=== PATIENT | male | born 1945 | race Caucasian/White ===

== ENCOUNTER 2022-05-13 10:39 | Outpatient (REF) | payer MEDICARE, SELFPAY ==
[2022-05-13 11:23] LABS: Hematocrit 40.6 % (37.0-53.0); Mean Corpuscular HGB Conc 32 gm/dL (32-36); Mean Corpuscular Hemoglobin 30 pg (26-34); Mean Corpuscular Volume 93 fL (80-100); Platelet Count* 202 K/uL (140-440); Red Blood Count 4.36 m/uL (4.30-5.90)
[2022-05-13 11:26] LABS: Chloride* 97 mmol/L (96-114); Potassium* 4.3 mmol/L (3.6-5.1); Sodium* 139 mmol/L (135-149)
[2022-05-13 11:27] LABS: Slide Review Reflex No
[2022-05-13 11:29] LABS: Creatinine* 1.1 mg/dL (0.5-1.5); Estimated Glomerular Filt Rate 69 ml/min
[2022-05-13 11:30] LABS: Blood Urea Nitrogen* 41 mg/dL (7-30); Carbon Dioxide* 33 mmol/L (20-32); Glucose* 176 mg/dL (60-115)
[2022-05-13 13:59] LABS: Hemoglobin A1C* 6.83 % (0-5.6)
== END 2022-05-13 10:40 | disposition home or self-care (01) ==
LOC: NPINS 10:39
PROVIDERS: PCP Family Medicine; Visit Provider Nurse Practitioner Gerontology
DX: E11.40 Type 2 diabetes mellitus with diabetic neuropathy, unspecified (principal); E03.9 Hypothyroidism, unspecified; E78.5 Hyperlipidemia, unspecified; I73.9 Peripheral vascular disease, unspecified
CPT/HCPCS: 80048; 83036; 84443; 85027

== ENCOUNTER 2022-10-27 15:40 | Outpatient (REF) | payer MEDICARE, MEDICAID, SELFPAY ==
[2022-10-27 17:20] LABS: Appearance Urine Cloudy (Clear); Bilirubin Urine 1+ (Negative); Blood Urine Negative (Negative); Color Urine Yellow (Yellow); Glucose Urine Negative (Negative); Ketones Urine Trace (Negative); Leukocyte Esterase Urine Negative (Negative); Nitrite Urine Negative (Negative); Protein Urine 1+ (Negative)
[2022-10-27 17:30] LABS: Amorphous Sediment Urine Few; RBC Urine 0-2 (0-2); WBC Urine 0-2 (0-5)
== END 2022-10-27 15:41 | disposition home or self-care (01) ==
LOC: NPINS 15:40
PROVIDERS: PCP Family Medicine; Visit Provider Nurse Practitioner Gerontology
DX: R32 Unspecified urinary incontinence (principal); R53.1 Weakness
CPT/HCPCS: 81003; 81015; 87086

== ENCOUNTER 2022-10-27 16:04 | Outpatient (CLI) | payer MEDICARE, MEDICAID, SELFPAY | END 2022-10-27 16:05 | disposition home or self-care (01) | LOC: AMB 10-30 11:17 | PROVIDERS: PCP Family Medicine; Visit Provider Emergency Medicine Emergency Medical Services | DX: R41.82 Altered mental status, unspecified (principal); R53.1 Weakness | CPT/HCPCS: A0425; A0427; A0428 ==

== ENCOUNTER 2022-10-27 16:29 | Emergency (ER) | payer MEDICARE, MEDICAID, SELFPAY ==
[2022-10-27 16:31] VITALS: BP 131/82; PULSE 87; RESP 16; TEMP 37.2; O2SAT 94; BMI 38.0
--- NOTE | 2022-10-27 16:54 | CRLHL7_ITS ---
For Patients: As a result of the Century Cures Act, medical imaging exams and procedure reports are released immediately into your electronic medical record. You may view this report before your referring provider. If you have questions, please contact your health care provider. INDICATION: .WEAKNESS, AMS TECHNIQUE: Head CT without contrast. COMPARISON: CT December 2020. FINDINGS: Periventricular areas of low attenuation, likely due to chronic small vessel ischemic changes. Generalized volume loss. Atherosclerosis. Right posterior parietal approach [employer] shunt catheter with tip abutting the intraventricular septum, unchanged compared to 2020 exam. No intracranial hemorrhage. No discrete mass or mass effect. There is no midline shift. The basilar cisterns are patent. Stable prominence of the ventricular system, unchanged compared to December 2020 exam. The saucedo-white matter interface is otherwise preserved. No acute osseous abnormality. No extracalvarial soft tissue abnormality. The mastoid air cells are clear. The paranasal sinuses are well-aerated. The visualized portions of the orbits and globes are unremarkable. IMPRESSION: No acute intracranial process per unenhanced head CT. Stable positioning right-sided [employer] shunt catheter with prominence of the ventricular system, unchanged dating back to December 2020. Please note that all CT scans at this facility use dose modulation, iterative reconstruction, and/or weight-based dosing when appropriate to reduce radiation dose to as low as reasonably achievable. Dictated by Barrett Francois MD @ 10/27/2022 5:18:53 PM (Electronically Signed)
--- NOTE | 2022-10-27 16:56 | ED_ITS ---
HPI - Weakness General Chief complaint: Weakness Stated complaint: Weakness Time Seen by Provider: 10/27/22 16:41 History of Present Illness HPI Narrative: This 77-year-old man is a resident of a prison and is DNR DNI. He comes in with family who state that he is not himself today. There is report of generalized weakness. He does not normally ambulate. The patient is not showing any sign of neurologic deficit. He is brought here for evaluation but the symptoms are stated as rather vague. Urine and labs were acquired at the prison and results are being sent here. A family member states that his blood glucose is been fluctuant lately. He has had some very high glucose levels and then as low as 35. Related Data Allergies Allergy/AdvReac Type Severity Reaction Status Date / Time No Known Drug Allergies Allergy Verified 10/27/22 16:38 Review of Systems Narrative: Review of systems is difficult because of the patient's current status. PFSH PFSH Social History Smoking Status: Never smoker Do you use any of these nicotine containing products: None Second hand tobacco smoke exposure: No How often do you have a drink containing alcohol: never AUDIT-C Alcohol total score: 0 Non-prescribed substance use: denies use Exam Narrative: Exam Narrative: Constitutional: Well-developed, well-nourished, no acute distress. HEENT: Normocephalic, atraumatic. Neck: Normal range of motion. Nontender. Supple. Heart: Regular. No murmurs. Normal rate. Intact distal pulses. Lungs: Clear to auscultation. No chest discomfort. No wheezes, rhonchi, or rales. Abdomen: Normal bowel sounds. Nontender. No rebound tenderness. Genitalia: Deferred. Back: No midline tenderness. Normal range of motion. Extremities: Normal range of motion. No injury. Bilateral pedal edema. Skin: Intact. No rash. Warm. No erythema or pallor. Neurologic: No altered sensation. No weakness. Alert. Psychiatric: No suicidality. No anxiety or depression. No insomnia. Nursing notes and vitals signs are reviewed. Const: Vital Signs, click to edit/add: Vital Signs - 24 hr 10/27/22 16:31 10/27/22 17:30 Temperature 99.0 F Pulse Rate [Pulse Oximeter] 87 Respiratory Rate 16 Blood Pressure [Le ft Upper Arm] 131/82 Pulse Oximetry 94 94 Oxygen Delivery Me thod Room Air Course Vital Signs Vital signs: Initial Vital Signs Temperature 99.0 F 10/27/22 16:31 Temperature Source Temporal Artery Scan 10/27/22 16:31 Pulse Rate 87 10/27/22 16:31 Pulse Rhythm 10/27/22 16:31 Pulse Strength 3+ Normal 10/27/22 16:31 Respiratory Rate 16 10/27/22 16:31 Blood Pressure 131/82 10/27/22 16:31 Blood Pressure Mean 98 10/27/22 16:31 Pulse Oximetry 94 10/27/22 16:31 Oxygen Delivery Method 10/27/22 16:31 Vital Signs Temperature 99.0 F 10/27/22 16:31 Pulse Rate 87 10/27/22 16:31 Respiratory Rate 16 10/27/22 16:31 Blood Pressure 131/82 10/27/22 16:31 Pulse Oximetry 94 10/27/22 16:31 Oxygen Delivery Method 10/27/22 16:31 Temperature 99.0 F 10/27/22 16:31 Pulse Rate 87 10/27/22 16:31 Respiratory Rate 16 10/27/22 16:31 Blood Pressure 131/82 10/27/22 16:31 Pulse Oximetry 94 10/27/22 17:30 Oxygen Delivery Method 10/27/22 16:31 MDM - Weakness MDM Narrative Medical decision making narrative: This 77-year-old male comes in from nursing care facility as family member states that he does not seem to be functioning is well and has weakness. The patient does not ambulate and today has normal neurologic exam. He seems to be interacting and is pleasant in no acute distress. Labs and urine were acquired at the nursing facility and these results returned with reassuring findings. There is no sign of infection. His glucose is in normal range. CT scan of his head shows no acute findings. He does have a [employer] shunt and this is functioning properly according to radiology report. Family member states that he has lost about 35 lb over the past 3 or 4 months. They state that he is not eating much. His needs for insulin have likely changed in this regard. Family member state that he does not like to have his blood glucose checked so it is only being checked about once a week. I recommended to family members that he have his blood glucose checked more regularly to allow his primary provider to manage his diabetes medications. Imaging Data CT scan - head: Radiologist's impression: No acute intracranial process per unenhanced head CT. Stable positioning right-sided [employer] shunt catheter with prominence of the ventricular system, unchanged dating back to December 2020. ECG Data Attestation: I personally reviewed and interpreted this ECG as follows: Interpretation: Normal sinus rhythm. Rate is 86 beats per minute. There are no ST or T-wave abnormalities. Discharge Plan Discharge Clinical Impression: Diabetes, Weakness Patient Disposition: Home w/ Parent or Adult Condition: Unchanged Additional Instructions: It is recommended to check blood glucose at least daily or better yet at the time of meals to administer appropriate insulin according to a sliding scale. Follow-up with primary physician to review medications. Return if worsening. Follow Up/Referrals: Herbert Marino MD [Primary Care Provider] - Stand Alone Forms: Imaging3 Info Instructions
[2022-10-27 17:30] VITALS: O2SAT 94
[2022-10-27 19:37] VITALS: BP 129/75; PULSE 75; RESP 18; TEMP 36.6; O2SAT 93
[2022-10-27 21:10] VITALS: RESP 20
--- NOTE | 2022-10-27 21:11 | PC.NURSE ---
patient breif changed, incontinent urine. patient reports no pain, states he wants to go home
== END 2022-10-27 21:39 | disposition home or self-care (01) ==
PROVIDERS: Emergency Provider Emergency Medicine Emergency Medical Services; PCP Family Medicine
DX: R53.1 Weakness (principal); E11.9 Type 2 diabetes mellitus without complications
CPT/HCPCS: 36415; 70450; 80048; 81003; 81015; 83036; 84443; 85027; 87086; 93005; 94761; 99284; 99285

== ENCOUNTER 2022-10-27 21:30 | Outpatient (CLI) | payer MEDICARE, MEDICAID, SELFPAY | END 2022-10-27 21:31 | disposition home or self-care (01) | LOC: AMB 11-07 03:11 | PROVIDERS: PCP Family Medicine; Visit Provider Family Medicine | DX: R53.1 Weakness (principal); F03.90 Unspecified dementia, unspecified severity, without behavioral disturbance, psychotic disturbance, mood disturbance, and anxiety | CPT/HCPCS: A0425; A0428 ==

== ENCOUNTER 2022-11-11 12:49 | Outpatient (CLI) | payer MEDICARE, MEDICAID, SELFPAY | END 2022-11-11 12:50 | disposition home or self-care (01) | LOC: WOUND 12:49 | PROVIDERS: PCP Family Medicine; Visit Provider Nurse Practitioner Family | DX: E11.621 Type 2 diabetes mellitus with foot ulcer (principal); L97.522 Non-pressure chronic ulcer of other part of left foot with fat layer exposed; Z79.4 Long term (current) use of insulin | CPT/HCPCS: 11042; 99204 ==

== ENCOUNTER 2022-11-14 13:00 | Outpatient (CLI) | payer MEDICARE, OTHER, MEDICAID, SELFPAY | END 2022-11-14 13:01 | disposition home or self-care (01) | LOC: WOUND 13:01 | PROVIDERS: PCP Family Medicine; Visit Provider Nurse Practitioner Family | DX: E11.621 Type 2 diabetes mellitus with foot ulcer (principal); L97.522 Non-pressure chronic ulcer of other part of left foot with fat layer exposed | CPT/HCPCS: 99213 ==

== ENCOUNTER 2022-11-18 10:30 | Outpatient (CLI) | payer MEDICARE, MEDICAID, SELFPAY | END 2022-11-18 10:31 | disposition home or self-care (01) | LOC: WOUND 10:30 | PROVIDERS: PCP Family Medicine; Visit Provider Nurse Practitioner Family | DX: E11.621 Type 2 diabetes mellitus with foot ulcer (principal); L97.522 Non-pressure chronic ulcer of other part of left foot with fat layer exposed | CPT/HCPCS: 11042; 97597 ==

== ENCOUNTER 2022-11-21 12:57 | Outpatient (CLI) | payer MEDICARE, MEDICAID, SELFPAY | END 2022-11-21 12:58 | disposition home or self-care (01) | LOC: WOUND 12:57 | PROVIDERS: PCP Family Medicine; Visit Provider Nurse Practitioner Family | DX: L97.522 Non-pressure chronic ulcer of other part of left foot with fat layer exposed; E11.621 Type 2 diabetes mellitus with foot ulcer | CPT/HCPCS: 99213 ==

== ENCOUNTER 2022-11-25 13:47 | Outpatient (CLI) | payer MEDICARE, MEDICAID, SELFPAY | END 2022-11-25 13:48 | disposition home or self-care (01) | LOC: WOUND 13:48 | PROVIDERS: PCP Family Medicine; Visit Provider Nurse Practitioner Family | DX: E11.621 Type 2 diabetes mellitus with foot ulcer (principal); L97.522 Non-pressure chronic ulcer of other part of left foot with fat layer exposed | CPT/HCPCS: 97597 ==

== ENCOUNTER 2022-11-28 12:56 | Outpatient (CLI) | payer MEDICARE, MEDICAID, SELFPAY | END 2022-11-28 12:57 | disposition home or self-care (01) | LOC: WOUND 12:57 | PROVIDERS: PCP Family Medicine; Visit Provider Nurse Practitioner Family | DX: E11.621 Type 2 diabetes mellitus with foot ulcer (principal); L97.522 Non-pressure chronic ulcer of other part of left foot with fat layer exposed | CPT/HCPCS: 99212 ==

== ENCOUNTER 2022-12-02 10:47 | Outpatient (CLI) | payer MEDICARE, MEDICAID, SELFPAY | END 2022-12-02 10:48 | disposition home or self-care (01) | LOC: WOUND 10:47 | PROVIDERS: PCP Family Medicine; Visit Provider Nurse Practitioner Family | DX: E11.621 Type 2 diabetes mellitus with foot ulcer (principal); L97.522 Non-pressure chronic ulcer of other part of left foot with fat layer exposed | CPT/HCPCS: 97597 ==

== ENCOUNTER 2022-12-09 12:46 | Outpatient (CLI) | payer MEDICARE, MEDICAID, SELFPAY | END 2022-12-09 12:47 | disposition home or self-care (01) | LOC: WOUND 12:47 | PROVIDERS: PCP Family Medicine; Visit Provider Nurse Practitioner Family | DX: E11.621 Type 2 diabetes mellitus with foot ulcer (principal); L97.522 Non-pressure chronic ulcer of other part of left foot with fat layer exposed | CPT/HCPCS: 99212 ==

== ENCOUNTER 2022-12-17 11:17 | Outpatient (CLI) | payer MEDICARE, MEDICAID, SELFPAY ==
--- NOTE | 2022-12-17 11:15 | CRLHL7_ITS ---
For Patients: As a result of the Century Cures Act, medical imaging exams and procedure reports are released immediately into your electronic medical record. You may view this report before your referring provider. If you have questions, please contact your health care provider. INDICATION: Dysphagia TECHNIQUE: Modified barium swallow. Fluoroscopic time 2 minutes 14 seconds. FINDINGS/IMPRESSION: Once the swallowing mechanism is initiated, the bolus is tolerated with only minimal penetration. No aspiration. No obstruction. Dictated by Barrett Mckeon MD @ 12/17/2022 12:28:58 PM (Electronically Signed)
== END 2022-12-17 11:18 | disposition home or self-care (01) ==
LOC: RAD 11:18
PROVIDERS: PCP Family Medicine; Visit Provider Family Medicine
DX: R13.10 Dysphagia, unspecified (principal)
CPT/HCPCS: 74230; 92611

== ENCOUNTER 2023-04-28 13:39 | Outpatient (CLI) | payer MEDICARE, MEDICAID, SELFPAY ==
--- NOTE | 2023-04-28 14:00 | CRLHL7_ITS ---
For Patients: As a result of the Century Cures Act, medical imaging exams and procedure reports are released immediately into your electronic medical record. You may view this report before your referring provider. If you have questions, please contact your health care provider. INDICATION: Ventriculoperitoneal shunt. Normal pressure hydrocephalus. TECHNIQUE: Noncontrast CT images acquired through the brain. COMPARISON: CT brain 10/27/2022. FINDINGS: Stable right parietal approach shunt catheter terminating in the right lateral ventricular body adjacent to the septum pellucidum. Stable moderately enlarged supratentorial ventricular system with reference transverse dimension of the 3rd ventricle approximating 12 mm. No mass effect or midline shift. Stable confluent hypoattenuation within the right parietal lobe adjacent to the catheter. Patchy hypoattenuation in the supratentorial white matter, suggestive of [id number] chronic microvascular changes. No acute intracranial hemorrhage or pathologic extra-axial fluid collection. The saucedo-white differentiation is maintained. Dense intracranial atherosclerotic calcifications. Thinning of the ocular lenses. The calvarium is intact. [id number] mucosal thickening and aerated secretions within the right frontal sinus. The mastoid air cells are clear. IMPRESSION: Stable right parietal approach shunt catheter and moderately enlarged supratentorial ventricular system. No significant change compared to the prior CT. Please note that all CT scans at this facility use dose modulation, iterative reconstruction, and/or weight-based dosing when appropriate to reduce radiation dose to as low as reasonably achievable. Dictated by Luis A Olivier MD @ 04/28/2023 7:39:53 PM (Electronically Signed)
== END 2023-04-28 13:40 | disposition home or self-care (01) ==
LOC: CT 13:41
PROVIDERS: PCP Family Medicine; Visit Provider Nurse Practitioner Family
DX: G91.2 (Idiopathic) normal pressure hydrocephalus (principal); Z98.2 Presence of cerebrospinal fluid drainage device
CPT/HCPCS: 70450